=== PATIENT | female | born 1975 ===

== ENCOUNTER → 2020-10-21 | Outpatient (CLI) | payer BC ==
[~2020-10-21] MED LIST: IBU800 MG PO; LEVOTHYROXINE88 MC1 PO; MEGA BIOTIN10000 MCG PO
[2020-10-21 10:24] LABS: BUN/CREATININE RATIO 10 (0-10)
== END ==
LOC: OPSV2 09:00
PROVIDERS: Orthopaedic Surgery
DX: Z01.818 Encounter for other preprocedural examination (principal); G56.02 Carpal tunnel syndrome, left upper limb
CPT/HCPCS: 36415; 80048; 93005

== ENCOUNTER → 2020-12-06 | Day surgery (SDC) | payer BC ==
[~2020-12-06] VITALS: Ht 160 cm; Wt 73.0 kg
[~2020-12-06] MED LIST changes: +HYDROCODON-ACE1 EAC2 PO
[2020-12-06 07:01] LABS: BUN/CREATININE RATIO 14 (0-10)
== END | disposition home or self-care (01) ==
LOC: OR 06:03
PROVIDERS: Orthopaedic Surgery
DX: G56.03 Carpal tunnel syndrome, bilateral upper limbs (principal); Z88.0 Allergy status to penicillin; Z20.828 Contact with and (suspected) exposure to other viral communicable diseases; E03.9 Hypothyroidism, unspecified
CPT/HCPCS: 80048; 93005; J1100; J1885; J2001; J2250; J2405; J2704; J7120